=== PATIENT | female | born 1980 | race Caucasian/White ===

== ENCOUNTER 2017-04-23 20:59 | Emergency (ER) | payer SELFPAY ==
[~2017-04-23 20:59] MED LIST: CEPHALEXIN500 M1 PO; CLEOCIN HC150 MG/CAP PO; CLEOCIN HCL300 MG PO; CLINDAMYCIN HC150 MG PO; CYMBALTA 60MG60 MG PO; FLAGYL500 MG PO; FLEXERIL10 MG PO; KLONOPIN 0.5MG0.5 MG PO; LAMICTAL 25MG T25 MG PO; LORTAB 5/500 501 TAB PO; METRONIDAZOLE500 MG PO; NAPROSYN PO; NAPROSYN500 MG PO; NO HOME MEDICATIONS; PENICILLIN V500 MG PO; PENICILLIN250 MG PO; PERCOCET 325 MG1 TA2 PO; VYVANSE30 MG PO
[2017-04-23 21:00] VITALS: BP 128/69; PULSE 108; TEMP 97
[2017-04-23] MEDS ORDERED: PREDNISONE10 MG PO (21:28)
== END 2017-04-23 22:02 | disposition home or self-care (01) ==
LOC: COL.ER 20:59
DX: L23.7 Allergic contact dermatitis due to plants, except food (principal)
CPT/HCPCS: J7512

== ENCOUNTER 2017-12-31 22:11 | Emergency (ER) | payer SELFPAY ==
[~2017-12-31] VITALS: Ht 175.3 cm; Wt 81.8 kg
[~2017-12-31 22:11] MED LIST changes: +PREDNISONE10 MG PO
[2017-12-31 22:16] VITALS: BP 169/108; TEMP 98
[2018-01-01] MEDS ORDERED: ZOFRAN ODT4 MG PO (00:31)
[2018-01-01 00:53] VITALS: PULSE 79
== END 2018-01-01 00:54 | disposition home or self-care (01) ==
LOC: COL.ER 22:11
DX: G43.909 Migraine, unspecified, not intractable, without status migrainosus (principal); F17.210 Nicotine dependence, cigarettes, uncomplicated; Z79.52 Long term (current) use of systemic steroids
CPT/HCPCS: J1200; J1885; J2765; J7030

== ENCOUNTER 2019-04-18 10:28 | Emergency (ER) | payer MEDICAID ==
[~2019-04-18] VITALS: Ht 175.3 cm; Wt 72.7 kg
[~2019-04-18 10:28] MED LIST changes: +ZOFRAN ODT4 MG PO
[2019-04-18 10:33] VITALS: BP 140/71
[2019-04-18] MEDS ORDERED: PREDNISONE20 MG PO (11:19)
[2019-04-18 11:50] VITALS: PULSE 76; TEMP 98.2
== END 2019-04-18 11:50 | disposition home or self-care (01) ==
LOC: COL.ER 10:28
DX: L23.7 Allergic contact dermatitis due to plants, except food (principal); F17.210 Nicotine dependence, cigarettes, uncomplicated; Z98.51 Tubal ligation status
CPT/HCPCS: J7512

== ENCOUNTER 2020-02-17 22:46 | Emergency (ER) | payer SELFPAY ==
[~2020-02-17] VITALS: Ht 175.3 cm; Wt 72.7 kg
[~2020-02-17 22:46] MED LIST changes: +PREDNISONE20 MG PO
[2020-02-17 23:08] VITALS: BP 150/118; PULSE 99; TEMP 98.3
== END 2020-02-18 00:35 | disposition left against medical advice (07) ==
LOC: COL.ER 22:46
DX: H92.01 Otalgia, right ear (principal)

== ENCOUNTER 2021-10-29 01:32 | Emergency (ER) | payer MEDICAID ==
[~2021-10-29] VITALS: Ht 175.3 cm; Wt 72.7 kg
[2021-10-29 01:41] VITALS: TEMP 98
[2021-10-29] MEDS ORDERED: NORVASC 5MG5 MG/TAB PO (02:27)
[2021-10-29 02:31] LABS: BASO # 0.1 K/mm3 (0.0-0.2); BASO % 0.5 % (0.0-2.0); EOS # 0.3 K/mm3 (0.0-0.7); EOS % 2.6 % (0.0-4.0); GRAN # 5.3 K/mm3 (1.4-6.5); GRAN % 53.6 % (42.2-75.2); LYMPH # 3.5 K/mm3 (1.2-3.4); LYMPH % 35.2 % (20.0-51.0); MEAN CELL VOLUME 91 fl (80.0-100.0); MEAN CORPUSCULAR HEMOGLOBIN 30 pg (27-31); MEAN CORPUSCULAR HGB CONC 33 g/dl (33.0-37.0); MEAN PLATELET VOLUME 10.3 fl (7.4-10.4); MONO # 0.8 K/mm3 (0.1-0.6); MONO % 7.8 % (1.7-9.3); PLATELET COUNT 224 K/mm3 (130-400); RED BLOOD COUNT 3.96 M/mm3 (4.10-5.30); REDCELL DISTRIBUTION WIDTH-CV 13.4 % (11.5-14.5)
[2021-10-29 02:33] LABS: HEMATOCRIT 36.1 % (37.0-47.0)
[2021-10-29 02:48] LABS: ALANINE AMINOTRANSFERASE 19 U/L (0-55); ALBUMIN 3.8 gm/dL (3.5-5.0); ALKALINE PHOSPHATASE 57 U/L (40-150); ANION GAP 10 mmol/L (7-16); AST,SGOT 19 U/L (5-34); BILIRUBIN,TOTAL 0.8 mg/dL (0.2-1.2); BLOOD UREA NITROGEN 14 mg/dL (7-19); CALCIUM 8.7 mg/dL (8.4-10.2); CARBON DIOXIDE 22 mmol/L (22-29); CHLORIDE 105 mmol/L (98-107); GLUCOSE 91 mg/dL (70-99); POTASSIUM 3.6 mmol/L (3.5-4.5); SODIUM 137 mmol/L (136-145); TOTAL PROTEIN 7.1 gm/dL (6.2-8.1)
[2021-10-29 02:55] LABS: TROPONIN-I < 0.010 ng/mL (0.00-0.033)
[2021-10-29 03:11] VITALS: BP 138/93; PULSE 75
== END 2021-10-29 03:24 | disposition home or self-care (01) ==
LOC: COL.ER 01:32
PROVIDERS: Personal Emergency Response Attendant
DX: I10 Essential (primary) hypertension (principal); F15.90 Other stimulant use, unspecified, uncomplicated; F17.200 Nicotine dependence, unspecified, uncomplicated
CPT/HCPCS: J2060; J7030